=== PATIENT | male | born 1970 | race Caucasian/White ===

== ENCOUNTER 2022-04-25 00:39 | Day surgery (SDC) | payer BC, SELFPAY ==
[2022-04-10 09:32] VITALS: BMI 25.8
--- NOTE | 2022-04-24 13:06 | WPDANESEPPF ---
Anes - Initial Pre Proc Eval Procedure: Operation Date: 04/25/22 09:00 Proposed Procedures p Screening Colonoscopy - Ken Espitia MD Date/Time: 04/24/22 13:06 Surgeon: Ken Espitia MD Pre Op Diagnosis: neoplasm screening Patient Data Age: 51 Gender: M Height: 1.8 m Weight: 84 kg Allergies Allergy/AdvReac Type Severity Reaction Status Date / Time No Known Allergies Allergy Verified 04/10/22 09:50 Home Medications Medication Instructions Recorded Confirmed Type peg 3350-electrolytes 236 240 ml PO Q10M #4,000 mL 04/09/22 04/10/22 Rx gram-22.74 gram-6.74 gram-5.86 gram solution (Golytely) Patient hx anesthesia problems: none Family hx anesthesia problems: none Results Review: All pre-operative results and documents have been reviewed as part of the pre-operative evaluation. [facility] Family History Family History Mother Family history of obesity Family history of cardiovascular disease Father Family history of cardiovascular disease Family history of malignant neoplasm of kidney Family history of obesity Family history of arthritis Grandparent Family history of cardiovascular disease Family history of malignant neoplasm of urinary bladder Social History Social History Smoking status: Never smoker Alcohol intake: current Drinks per week: 4 Substance use: never Substance use type: does not use Living arrangements: with family Spiritual care concerns: No Anes - Eval Final PreProcedure Day of Procedure 04/24/22 13:06 Patient weight: overweight Heart: regular rate and rhythm Lungs: clear to auscultation Airway: Mallampati scale class II Neurological: alert and oriented Last oral intake: >/= 8 hours ASA classification: I Emergent: no Anesthetic plan: proceed Anesthesia type and monitoring: general GIVS and standard monitoring Results Review: All pre-operative results and documents have been reviewed as part of the pre-operative evaluation. Informed Consent: The patient's anesthetic plan and its attendant risks and benefits were discussed with the patient/family/POA. Questions were solicited and answers provided to the satisfaction of the patient/family/POA.
[2022-04-25 08:13] VITALS: BP 118/72; PULSE 50; RESP 18; TEMP 36.4; O2SAT 98; BMI 26.2
[2022-04-25] MEDS: LACTATED RINGERS 1,000 ML 150 ML IV CONT (08:21)
--- NOTE | 2022-04-25 09:17 | P.HP_ITS ---
H&P: HPI History of Present Illness Date/Time: 04/25/22 09:17 Chief Complaint: Neoplasia screening. Narrative: This is a 51-year-old white male patient presents for screening colonoscopy. Patient's current weight appetite and bowel movements are normal. Patient denies abdominal pain. Family history is noncontributory. He presents today for screening exam. Review of Systems Review of Systems: Review of systems noncontributory. [facility] Family History Family History Mother Family history of obesity Family history of cardiovascular disease Father Family history of cardiovascular disease Family history of malignant neoplasm of kidney Family history of obesity Family history of arthritis Grandparent Family history of cardiovascular disease Family history of malignant neoplasm of urinary bladder Social History Social History Smoking status: Never smoker Alcohol intake: current Drinks per week: 4 Substance use: never Substance use type: does not use Living arrangements: with family Spiritual care concerns: No Meds Home Medications and Allergies Home Medications Medication Instructions Recorded Confirmed Type peg 3350-electrolytes 236 240 ml PO Q10M #4,000 mL 04/09/22 04/10/22 Rx gram-22.74 gram-6.74 gram-5.86 gram solution (Golytely) Allergies Allergy/AdvReac Type Severity Reaction Status Date / Time No Known Allergies Allergy Verified 04/10/22 09:50 Vital Signs Vital Signs - 24 hr 04/25/22 08:13 Temperature 97.5 F L Pulse Rate 50 L Respiratory Rate 18 Blood Pressure 118/72 Pulse Oximetry 98 Oxygen Delivery Room Air Exam Narrative: Physical exam reveals patient to be alert. Vital signs stable. HEENT exam is unremarkable. Patient is anicteric. Lungs are clear to auscultation and percussion. Heart is without murmur or extra sounds. Abdominal exam bowel sounds are present soft nontender with no organomegaly. Digital external rectal exam is normal. Assessment and Plan Assessment and plan (1) Encounter for screening colonoscopy: Code(s): Z12.11 - Encounter for screening for malignant neoplasm of colon Status: Acute Assessment and Plan: Patient presents today for screening colonoscopy. Appears to be at average risk for colon polyps. Further recommendations will be given after endoscopy.
[2022-04-25 09:52] VITALS: BP 108/63; PULSE 40; RESP 16; O2SAT 97
[2022-04-25 10:02] VITALS: BP 114/74; PULSE 37; RESP 19; O2SAT 100
--- NOTE | 2022-04-25 10:07 | SUR.PHASEII ---
Dr. Gil notified of HR 37-42. Dr to bedside. No new orders at this time.
[2022-04-25 10:12] VITALS: BP 114/78; PULSE 36; RESP 17; O2SAT 100
== END 2022-04-25 10:19 | disposition home or self-care (01) ==
PROVIDERS: PCP Family Medicine; Visit Provider Internal Medicine Gastroenterology
PROC: 0DJD8ZZ Inspection of Lower Intestinal Tract, Via Natural or Artificial Opening Endoscopic (ICD-10-PCS; CPT 45378; principal; 2022-04-25 09:00)
DX: Z12.11 Encounter for screening for malignant neoplasm of colon (principal); D12.2 Benign neoplasm of ascending colon; D12.5 Benign neoplasm of sigmoid colon
CPT/HCPCS: 45385; 88305; J2001; J2704; J7120

== ENCOUNTER 2023-06-17 15:20 | Outpatient (CLI) | payer BC, SELFPAY | END 2023-06-17 15:21 | disposition home or self-care (01) | LOC: ANHGOSHLAB 15:21 | PROVIDERS: PCP Family Medicine; Visit Provider Family Medicine | DX: E78.2 Mixed hyperlipidemia (principal) | CPT/HCPCS: 36415; 84443 ==

== ENCOUNTER 2023-07-01 09:58 | Outpatient (CLI) | payer BC, SELFPAY ==
[2023-07-01 19:53] LABS: Alanine Aminotransferase 34 U/L (6-50); Albumin Level 3.9 g/dL (3.5-5.1); Alkaline Phosphatase 60 U/L (38-126); Anion Gap 5 mmol/L (8-16); Aspartate Amino Transferase 34 U/L (17-59); Bilirubin,Total 0.7 mg/dL (0.2-1.3); Blood Urea Nitrogen 15 mg/dL (9-20); Calcium 8.8 mg/dL (8.4-10.2); Carbon Dioxide 29 mmol/L (22-30); Chloride 104 mmol/L (98-107); Cholesterol 173 mg/dL (0-200); Estimated Glomerular Filt Rate > 60; Glucose 98 mg/dL (65-110); HDL Direct 37 mg/dL; Potassium 3.9 mmol/L (3.4-5.0); Sodium 138 mmol/L (137-145); Triglycerides 158 mg/dL (<150)
[2023-07-01 20:04] LABS: LDL Cholesterol Direct 81 mg/dL
== END 2023-07-01 09:59 | disposition home or self-care (01) ==
LOC: ANHGOSHLAB 10:00
PROVIDERS: PCP Family Medicine; Visit Provider Family Medicine
DX: E78.2 Mixed hyperlipidemia (principal)
CPT/HCPCS: 36415; 80053; 80061